=== PATIENT | female | born 1960 | race Caucasian/White ===

== ENCOUNTER 2020-07-29 08:38 | Outpatient (REF) | payer OTHER, SELFPAY ==
--- NOTE | 2020-07-29 16:05 | MHC.AU.ANR ---
Adult Audiological Evaluation Date of Visit: 07/29/20 Reason for Appointment: Audiological evaluation due to concern for decreased hearing. Ms. Nieto states that she was previously diagnosed with hearing loss at [facility] in 2003 and had hearing aids that were lost in a move several years ago. She notes difficulties understanding speech and notes particular difficulty hearing outside. Does patient feel they have a hearing loss?: Yes If Yes, Which Ear?: Both Ears When Was Hearing Difficulty First Noticed?: 10 years ago Has hearing been tested previously?: Yes Previous Hearing Test Results: [facility], 2003. Results not available for review today. Hearing Handicap Inventory: HHIE SCORE: 36 Based on HHIE score, patient has: Severe perceived hearing handicap Ear History: Family History of Hearing Loss?: Yes: Mother, father, brother History of Ear Wax Buildup: Both Ears Medical History: Medical History: Headache, High Blood Pressure, Measles, Mumps Allergies: Topamax, Ibuprofen, Codeine Medication List: Fluoxitine, Vitamin D, Vitamin B12, Zolpidem, Atorvastatin, Amlodipine Otoscopy: Right Ear: Unremarkable Left Ear: Unremarkable Tympanometry: Tympanometry performed due to: To assess integrity of the middle ear system Right Ear: Normal Middle Ear System (Type A) Left Ear: Normal Middle Ear System (Type A) Hearing Evaluation: Transducer(s) Used: Insert Earphones, Bone Conduction Method: Conventional Audiometry Stimuli Used: Pure Tones Right Ear: Description of Hearing: Normal hearing from 250-1000 Hz, sloping to a mild to moderately severe sensorineural hearing loss from 4864-3474 Hz. Left Ear: Description of Hearing: Normal hearing from 250-1500 Hz, sloping to a mild to moderately severe sensorineural hearing loss from 1096-6279 Hz. Speech Recognition Threshold (SRT): Method Used: Monitored Live Voice Stimuli Used: Spondee Words Right Ear: 30 dBHL Left Ear: 25 dBHL Word Discrimination: Method: Monitored Live Voice Word Lists Used: NU-6 Right Ear: 100% at 70 dBHL Left Ear: 100% at 65 dBHL Recommendations: Audiological re-evaluation in one year. Trial with amplification is recommended. Medical clearance from a physician is required before fitting. Hearing Aid Fitting will be scheduled when all materials arrive. Hearing aid(s) will be ordered after approval is received. Diagnosis: Primary Diagnosis: H90.3 Bilateral Sensorineural Hearing Loss Services Performed: Services Performed: Comprehensive Audiological Evaluation (CPT 22733) Tympanometry (CPT 51964) Signature: Provider: Jennifer Clark, CCC-A
--- NOTE | 2020-07-29 16:06 | MHC.AU.MED ---
Medical Clearance for Hearing Instrumentation Date: 07/29/20 Patient Name: Charlee Nieto Date of : 1960 Referring Provider: Meghana Goodrich MD We have seen your patient on 07/29/20 and have determined that they are a candidate for amplification (See accompanying report). Specifically, they would benefit from: Hearing aid use in both ears There is a statute that addresses Medical Evaluation Requirements prior to fitting a patient with a hearing aid. According to [place] statute 265 CMR:6.03(1), (a) General. Except as provided in 265 CMR 6.03(1)(b), a tray service worker shall not sell a hearing aid unless the prospective user has presented to the tray service worker a written statement signed by a licensed physician that states that the patient's hearing loss has been medically evaluated and the patient may be considered a candidate for a hearing aid. The medical evaluation must have taken place within the preceding six months. Please note: Due to the [place] Statute referenced above, we cannot accept a signature other than that of a licensed physician. CONTACT LENS POLISHER and PA signatures cannot be accepted. I am in agreement with the above recommendation. There is no medical contraindication for hearing instrumentation. Physician Signature Date Physician Name (Printed)
--- NOTE | 2020-07-29 16:06 | MHC.AU.HAS ---
Hearing Aid Evaluation Date of Visit: 07/29/20 Historical Information: Description of Hearing: Mild to moderately severe sensorineural hearing loss bilaterally. Summary: Patient was diagnosed with a bilateral hearing loss today. She reports significant difficulties hearing and understanding speech in most situations. Binaural amplification is recommended to facilitate improved communication. Hearing Aid Prescription: Based on the individual?s shared listening needs, communication environments, dexterity, desire for connectivity, and personal preferences, the following prescription for amplification has been made: Right ear: Beveller Operator: Phonak Model: [place] P70-R Battery Size: Rechargeable Color: P4- [place] Identity Access Management Architect: Size 1 M Type of Dome: Open Left ear: Beveller Operator: Phonak Model: [place] P70-R Battery Size: Rechargeable Color: P4- [place] Identity Access Management Architect: Size 1 M Type of Dome: Open Action Taken/Action Needed: Prior authorization to be requested. Medical Clearance to be requested from PCP/ENT. Aids will be ordered when approval is received. Patient will be scheduled for a fitting when hearing aids arrive. Signature: Provider: Jennifer Clark, [facility]
== END 2020-07-29 08:39 | disposition home or self-care (01) ==
LOC: HO.SH 08:38
PROVIDERS: Visit Provider Family Medicine
DX: H90.3 Sensorineural hearing loss, bilateral (principal)
CPT/HCPCS: 92557; 92567; 92591

== ENCOUNTER 2020-08-15 10:24 | Outpatient (REF) | payer OTHER, SELFPAY | END 2020-08-15 10:25 | disposition home or self-care (01) | LOC: HO.HAP 10:24 | PROVIDERS: Visit Provider Family Medicine | DX: Z46.1 Encounter for fitting and adjustment of hearing aid (principal); H90.3 Sensorineural hearing loss, bilateral | CPT/HCPCS: V5011; V5020; V5160; V5261 ==

== ENCOUNTER 2020-09-08 14:16 | Outpatient (REF) | payer OTHER, SELFPAY | END 2020-09-08 14:17 | disposition home or self-care (01) | LOC: HO.HAP 14:16 | PROVIDERS: Visit Provider Internal Medicine | DX: Z46.1 Encounter for fitting and adjustment of hearing aid (principal); H90.3 Sensorineural hearing loss, bilateral | CPT/HCPCS: V5275 ==

== ENCOUNTER 2020-10-04 11:04 | Outpatient (REF) | payer OTHER, SELFPAY | END 2020-10-04 11:05 | disposition home or self-care (01) | LOC: HO.HAP 11:04 | PROVIDERS: Visit Provider Family Medicine | DX: Z46.1 Encounter for fitting and adjustment of hearing aid (principal); H90.3 Sensorineural hearing loss, bilateral | CPT/HCPCS: V5264; V5266 ==